=== PATIENT | female | born 1980 | race Caucasian/White ===

== ENCOUNTER 2025-07-15 13:44 | Day surgery (SDC) | payer BC ==
[2025-07-08 14:19] LABS: MEAN PLATELET VOLUME 7.1 FL (7.4-10.4); PRE OP HEMATOCRIT 38.3 % (35.0-45.0); PRE OP HEMOGLOBIN 13.2 g/dL (12.0-16.0); PRE OP PLATELET COUNT 308 X10'3 (140-440); PRE OP WHITE BLOOD COUNT 7.7 10'3 (4.8-10.8); RED CELL DISTRIBUTION WIDTH 12.6 % (11.5-14.5)
[2025-07-08 14:36] LABS: CREATININE 0.78 MG/DL (0.40-0.90); PRE OP ALT 22 U/L (30-65); PRE OP ANION GAP 6 (8-16); PRE OP AST 13 U/L (10-37); PRE OP BILIRUB, TOTAL 0.3 MG/DL (0.0-1.0); PRE OP GLUCOSE 96 MG/DL (70-104); PRE OP POTASSIUM 3.8 MMOL/L (3.4-5.1); PRE OP SODIUM 141 MMOL/L (135-145); TOTAL CARBON DIOXIDE 30.9 MMOL/L (24-32); eGFR 80 ML/MIN
[2025-07-08 14:55] LABS: HCG SERUM QL NEGATIVE
[2025-07-15] VITALS (13 sets, daily range): BP systolic 129–155; BP diastolic 68–88; PULSE 68–106; RESP 10–17; TEMP 96.8; O2SAT 92–100
[~2025-07-15] VITALS: Ht 165.1 cm; Wt 96.8 kg
[~2025-07-15 13:44] MED LIST: HYDROmorphone/PF 0.2 MG/ML SYRINGE IV PRN; NO HOME MEDS; VANCOMYCIN 2GM/400ML H20 (PEG) 400 ML IV ONE; enalaprilat 1.25mg/ml 2ml vial IV PRN; fentaNYL/PF 50MCG/1 ML 2ML syringe IV PRN; labetalol 20mg/4ml (5mg/ml) syringe IV PRN; morphine 4 MG/ML inj SYRINge IV PRN; ondansetron/PF 4mg/2ml inj IV PRN; ringers solution, lacted 1,000 ML IV SCH
[2025-07-15] MEDS ORDERED: ceFAZolin 2gm/dext,iso 50mL 50 ML IV ONE (14:25)
[2025-07-15] MEDS: INDOCYANINE GREEN 25 MG/10 ML VIAL IV ONE (14:58)
[2025-07-15] MEDS ORDERED: fentaNYL/PF 50MCG/1 ML 2ML syringe ONE (15:58)
[2025-07-15] MEDS ORDERED: midazolam 1 mg/ML 2ml injection ONE (15:59)
[2025-07-15] MEDS ORDERED: BUPIVAcaine/PF 2.5mg/ml (0.25%) 10ml vial ONE (15:59)
[2025-07-15] MEDS ORDERED: propofol inj 20 ML IV ONE (15:59)
[2025-07-15] MEDS ORDERED: LIDOcaine 1% 30ml preserv. free vial ONE (15:59)
[2025-07-15] MEDS ORDERED: LIDOcaine 2% (20mg/ml) 5ml vial ONE (15:59)
[2025-07-15] MEDS ORDERED: rocuronium 10mg/ml inj IV ONE (16:11)
[2025-07-15] MEDS ORDERED: ondansetron/PF 4mg/2ml inj ONE (16:11)
[2025-07-15] MEDS: BUPIVAcaine/PF 2.5 mg/ml (0.25%) 30ml vial IJ ONE (16:18)
[2025-07-15] MEDS ORDERED: dexamethasone sod phosphate 4mg/ml inj. ONE (16:18)
[2025-07-15] MEDS ORDERED: glycopyrrolate 0.2mg/ml inj ONE (16:18)
[2025-07-15] MEDS: LIDOcaine 1% 30ml preserv. free vial IJ ONE (16:18)
[2025-07-15] MEDS ORDERED: ketorolac trometh 30MG/ML vial 30 MG/ML VIAL ONE (16:18)
--- NOTE | 2025-07-15 17:12 | OPERATIVE REPORT ---
Operative Report Providers to CC CC: JALEN RUFF MD ~ Date of Procedure: Jul 15, 2025 Pre-Operative Diagnosis: Symptomatic cholelithiasis Post-Operative Diagnosis SAME as PRE-Op Procedure Performed Robotic assisted, laparoscopic cholecystectomy Surgeon: Jalen Ruff MD FACS Occup Ther None Anesthesiologist: Brijesh Pineda Type of Anesthesia: General Findings: Clinical findings consistent with a chronic calculous cholecystitis Critical view of safety obtained and confirmed using fluorescent cholangiogr aphy/firefly Wound class II Complications None Prosthetics\Implants used: None Estimated Blood Loss: Minimal Specimen Removed: Gallbladder Description of Procedure: Patient was brought to the operating room and identified by the nursing staff and the attending physician. Patient was placed supine and general anesthesia was induced. A supraumbilical, midline incision was made, long enough to accommodate a 12 mm Dumas port. Dumas technique was used to gain entry into the abdomen. Stay sutures were placed in the Dumas port anchored to the fascia. Abdomen was insufflated without incident. Laparoscope was inserted and the abdomen surveyed. Secondary, 8.5 mm robotic trochars were placed in the left upper quadrant and right lateral abdomen. Robotic arm was docked to the patient. Robotic instruments were guided intra- abdominally under laparoscopic visualization. Gallbladder was readily identified. There were some clinical findings suspicious for chronic cholecystitis. Fundus of the gallbladder was grasped and retracted over the dome of the liver. Infundibulum was retracted towards the right lower quadrant. Firefly technology was used to obtain a fluorescent cholangiogram and visualize the pertinent anatomy. Cystic duct was clearly visualized. Peritoneum overlying the triangle was incised with hook electrocautery. This allowed for circumferential dissection of the cystic duct and artery. Critical view of safety was obtained. Duct and artery were then clipped with hemo-lock clips and both structures divided. Gallbladder was retracted laterally and dissected out of the gallbladder fossa. Gallbladder was set aside and fluorescent cholangiogram of the gallbladder fossa was used to confirm no evidence of bile leak. Gallbladder was placed in a laparoscopic retrieval bag. Secondary trochars were removed and the abdomen allowed to deflate. Dumas port was removed with the specimen in its retrieval bag. Fascia at the umbilical port site was closed with 0 Vicryl sutures. Skin was closed with 4-0 Monocryl sutures in a subcuticular fashion About 40 cc of local anesthetic was used during the case. Sterile dressings were applied. Patient was awakened and taken to the postanesthesia care unit in stable condition. Counts repoted as correct: Yes JALEN RUFF MD Jul 15, 2025 17:12
[2025-07-15] MEDS: oxyCODONE/APAP 5-325mg tablet PO PRN (18:39)
== END 2025-07-15 19:28 | disposition home or self-care (01) ==
LOC: PAS 13:44
PROVIDERS: ATTEND Surgery
DX: K80.20 Calculus of gallbladder without cholecystitis without obstruction (principal); E66.9 Obesity, unspecified; Z90.49 Acquired absence of other specified parts of digestive tract; Z98.891 History of uterine scar from previous surgery; Z98.890 Other specified postprocedural states; Z68.35 Body mass index [BMI] 35.0-35.9, adult
CPT/HCPCS: 36415; 47563; 80053; 82948; 84703; 85025; J1100; J1885; J2003; J2250; J2405; J2704; J2710; J3010; J3490; J7030; J7120; S2900; Z7506; Z7508; Z7512; A4215; A4618; A7000; J3375